=== PATIENT | female | born 1975 | race Caucasian/White ===

== ENCOUNTER 2017-04-11 09:16 | Emergency (ER) | payer MEDICARE, MEDICAID ==
[2017-04-11] MEDS ORDERED: Clindamycin 150 MG CAP ONE ×2 (09:40)
[2017-04-11] MEDS ORDERED: Naproxen 500 MG TAB ONE (09:40)
[2017-04-11] MEDS ORDERED: Acetaminophen/Codeine 30-300mg Tablet ONE (09:44)
[2017-04-11] MEDS ORDERED: Fluconazole 100 MG TAB ONE (09:45)
== END 2017-04-11 09:55 | disposition home or self-care (01) ==
LOC: MADERS 09:16
DX: K11.3 Abscess of salivary gland (principal); K04.7 Periapical abscess without sinus; M06.9 Rheumatoid arthritis, unspecified; D64.9 Anemia, unspecified; E11.9 Type 2 diabetes mellitus without complications; F32.9 Major depressive disorder, single episode, unspecified
CPT/HCPCS: 99282

== ENCOUNTER 2018-08-13 17:20 | Emergency (ER) | payer MEDICARE, MEDICAID ==
[2018-08-13] MEDS ORDERED: Ketorolac Tromethamine 30 MG/ML VIAL ONE (18:05)
[2018-08-13] MEDS ORDERED: Mag-Al Plus 1200 MG/1200 MG/120 MG/30 ML UDCUP ONE (18:05)
[2018-08-13] MEDS ORDERED: Lidocaine Viscous Sol 2% 15 ml UD Cup ONE (18:05)
[2018-08-13 18:26] LABS: #Basophils 0.1 thou/uL (0.0-0.2); #Eosinphils 0.4 thou/uL (0.0-0.7); #Lymphocytes 2.5 thou/uL (1.20-3.40); #Monocytes 0.9 thou/uL (0.11-0.59); #Neutrophils 11.2 thou/uL (1.40-6.50); %Basophils 0.4 % (0.0-1.0); %Eosinophils 2.6 % (0.0-10.0); %Lymphocytes 16.5 % (21.0-51.0); %Monocytes 5.9 % (0.0-10.0); %Neutrophils 74.5 % (42.0-75.0); ALT (SGPT) 28 U/L (8-55); AST (SGOT) 15 U/L (5-34); Albumin 4.3 g/dL (3.5-5.0); Alkaline Phosphatase 156 U/L (40-150); Anion Gap 16 mmol/L (10-20); Anisocytosis SLIGHT = 6-15 cells (100X) (0-5/hpf); BUN (Urea Nitrogen) 13 mg/dL (7.0-18.7); Bilirubin, Total 0.4 mg/dL (0.2-1.2); CK (CPK) 26 U/L (29-168); Calc. Creatinine Clearance 0 mL/min (70-130); Calcium 10.1 mg/dL (7.8-10.44); Carbon Dioxide 25 mmol/L (22-29); Chloride 104 mmol/L (98-107); Estimated GFR-MDRD 81; Globulin 3.4 g/dL (2.4-3.5); Glucose 131 mg/dL (70-105); Hemoglobin 11.3 g/dL (12.0-16.0); Lipase 59 U/L (8-78); MDiff Complete? YES; Mean Corpuscular HGB CONC 31.3 g/dL (32.0-36.0); Mean Corpuscular Hemoglobin 23.2 pg (27.0-31.0); Mean Corpuscular Volume 74.2 fL (78.0-98.0); Microcytosis SLIGHT = 6-15 cells (100X) (0-5/hpf); Platelet Count 380 thou/uL (130-400); Potassium 3.6 mmol/L (3.5-5.1); Protein, Total 7.7 g/dL (6.0-8.3); RBC Distribution Width 16.2 % (11.5-14.5); Red Blood Cell (RBC) Count 4.87 mill/uL (4.20-5.40); Sodium 141 mmol/L (136-145); White Blood Cell (WBC) Count 15.1 thou/uL (4.8-10.8)
[2018-08-13 18:55] LABS: Bilirubin Negative (Negative); Blood, Urine Negative (Negative); Glucose, Urine (Dipstick) Negative (Negative); Leukocyte Negative (Negative); Nitrite Negative (Negative); Protein, Urine (Dipstick) Trace mg/dL (Neg-Trace); Specific Gravity, Urine 1.025 (1.005-1.030); Urobilinogen 0.2 mg/dL (0.2-1.0); pH, Urine 5.5 (5.0-9.0)
[2018-08-13 18:56] LABS: Clarity Hazy (Clear)
--- NOTE | 2018-08-13 19:19 | RAD ---
PORTABLE CHEST: 08/13/18 HISTORY: Chest pain. Film technique is suboptimal for evaluation of the lung bases. Heart size is upper limits of normal. Mediastinal structures appear unremarkable. Lungs appear clear of any definite infiltrates. IMPRESSION: Suboptimal visualization of the lung bases due to body habitus. No definite infiltrate. If indicated, a PA and lateral chest film would be helpful in assessment. POS: [facility]
== END 2018-08-13 19:40 | disposition home or self-care (01) ==
LOC: MADERS 17:20
DX: R07.89 Other chest pain (principal); M06.9 Rheumatoid arthritis, unspecified; E11.9 Type 2 diabetes mellitus without complications; D64.9 Anemia, unspecified; F41.9 Anxiety disorder, unspecified; I10 Essential (primary) hypertension; F32.9 Major depressive disorder, single episode, unspecified; Z79.899 Other long term (current) drug therapy; Z79.891 Long term (current) use of opiate analgesic
CPT/HCPCS: 71045; 80053; 81003; 82550; 83690; 84484; 85025; 93005; 96374; J1885

== ENCOUNTER 2019-06-23 09:02 | Emergency (ER) | payer MEDICARE, MEDICAID ==
[2019-06-23] MEDS ORDERED: Acetaminophen 500 MG TAB ONE (09:31)
== END 2019-06-23 10:10 | disposition home or self-care (01) ==
LOC: MADERS 09:02
DX: B34.9 Viral infection, unspecified (principal); I10 Essential (primary) hypertension; M06.9 Rheumatoid arthritis, unspecified; E11.9 Type 2 diabetes mellitus without complications; F32.9 Major depressive disorder, single episode, unspecified; F41.9 Anxiety disorder, unspecified; Z79.899 Other long term (current) drug therapy; Z79.82 Long term (current) use of aspirin
CPT/HCPCS: 87081; 87430; 87804; 99283

== ENCOUNTER 2020-02-24 13:42 | Emergency (ER) | payer MEDICARE, MEDICAID, OTHER ==
[2020-02-24] MEDS ORDERED: Promethazine HCl 6.25 MG/5 ML Syrup ONE (14:27)
--- NOTE | 2020-02-24 14:56 | RAD ---
PORTABLE CHEST 1 VIEW: DATE: 02/24/2020. TIME: 2:41 PM. HISTORY: Cough. COMPARISON: 08/13/2018. FINDINGS: The heart size is normal. The lungs are expanded without lobar consolidation, pneumothoraces, malvin pulmonary edema, or pleural effusions. IMPRESSION: No acute process. POS: [facility]
[2020-02-24] MEDS ORDERED: Ibuprofen 800 MG TAB ONE (15:58)
[2020-02-25 12:09] LABS: SARS-CoV-2 MS2 Positive; SARS-CoV-2 N Gene Positive; SARS-CoV-2 S Gene Positive; SARS-CoV-2 orf1ab Positive
== END 2020-02-24 16:15 | disposition home or self-care (01) ==
LOC: MADERS 13:42
DX: U07.1 COVID-19 (principal); J20.8 Acute bronchitis due to other specified organisms; M06.9 Rheumatoid arthritis, unspecified; D64.89 Other specified anemias; F41.9 Anxiety disorder, unspecified; F32.9 Major depressive disorder, single episode, unspecified; I10 Essential (primary) hypertension; E11.9 Type 2 diabetes mellitus without complications; Z79.899 Other long term (current) drug therapy
CPT/HCPCS: 71045; 87081; 87430; 87804 ×2; 99283; U0003; 87635

== ENCOUNTER 2020-04-01 15:01 | Outpatient (CLI) | payer MEDICARE, OTHER ==
[2020-04-01 15:26] LABS: #Basophils 0.1 thou/uL (0.0-0.2); #Eosinphils 0.4 thou/uL (0.0-0.7); #Lymphocytes 3.3 thou/uL (1.20-3.40); #Monocytes 0.4 thou/uL (0.11-0.59); #Neutrophils 4.5 thou/uL (1.40-6.50); %Basophils 0.7 % (0.0-1.0); %Eosinophils 4.1 % (0.0-10.0); %Lymphocytes 38.6 % (21.0-51.0); %Monocytes 4.7 % (0.0-10.0); %Neutrophils 51.9 % (42.0-75.0); Hemoglobin 14.4 g/dL (12.0-16.0); Mean Corpuscular HGB CONC 30.8 g/dL (32.0-36.0); Mean Corpuscular Hemoglobin 25.2 pg (27.0-31.0); Mean Corpuscular Volume 81.7 fL (78.0-98.0); Mean Platelet Volume 7.9 fL (7.4-10.4); Platelet Count 332 thou/uL (130-400); RBC Distribution Width 14.4 % (11.5-14.5); Red Blood Cell (RBC) Count 5.71 mill/uL (4.20-5.40); White Blood Cell (WBC) Count 8.6 thou/uL (4.8-10.8)
[2020-04-01 15:41] LABS: ALT (SGPT) 77 U/L (8-55); AST (SGOT) 62 U/L (5-34); Albumin 4.4 g/dL (3.5-5.0); Alkaline Phosphatase 122 U/L (40-110); Anion Gap 15 mmol/L (10-20); BUN (Urea Nitrogen) 16 mg/dL (7.0-18.7); Bilirubin, Total 0.4 mg/dL (0.2-1.2); Calc. Creatinine Clearance 0 mL/min (70-130); Calcium 10.1 mg/dL (7.8-10.44); Carbon Dioxide 26 mmol/L (22-29); Chloride 101 mmol/L (98-107); Estimated GFR-MDRD 88; Globulin 3.2 g/dL (2.4-3.5); Glucose 183 mg/dL (70-105); Potassium 3.9 mmol/L (3.5-5.1); Protein, Total 7.6 g/dL (6.0-8.3); Sodium 138 mmol/L (136-145)
--- NOTE | 2020-04-01 15:46 | RAD ---
Chest 2 views HISTORY: Covert pneumonia. COMPARISON: 02/24/2020. FINDINGS: Cardiac silhouette is upper limits of normal in size. Pulmonary vasculature is slightly eng orged. No lobar consolidation, pleural fluid, or pneumothorax are apparent. Lateral costophrenic angles are excluded from the frontal view. IMPRESSION : Borderline pulmonary vascular prominence. No focal infiltrate is evident.
[2020-04-01 16:33] LABS: Thyroid Stimulating Hormone 3.5964 uIU/mL (0.35-4.94)
[2020-04-01 22:20] LABS: Hemoglobin A1c 9.1 % (4.0-6.0); Iron 82 ug/dL (50-170); Iron Binding Capacity, Total 413 mcg/dL (265-497)
[2020-04-01 22:43] LABS: Ferritin 70.53 ng/mL (10-291)
== END 2020-04-01 15:02 | disposition home or self-care (01) ==
LOC: MADLAB 15:01
PROVIDERS: ATTEND Physician Assistant Medical
DX: D50.9 Iron deficiency anemia, unspecified (principal); E11.9 Type 2 diabetes mellitus without complications; I10 Essential (primary) hypertension; Z86.19 Personal history of other infectious and parasitic diseases
CPT/HCPCS: 36415; 71046; 80053; 82728; 83036; 83540; 83550; 84443; 85025

== ENCOUNTER 2021-05-29 13:55 | Emergency (ER) | payer MEDICARE, MEDICAID ==
[2021-05-29 15:50] LABS: #Eosinphils 0.2 thou/uL (0.0-0.7); #Lymphocytes 2.1 thou/uL (1.20-3.40); #Monocytes 0.5 thou/uL (0.11-0.59); #Neutrophils 6.1 thou/uL (1.40-6.50); %Basophils 0.3 % (0.0-1.0); %Eosinophils 2.5 % (0.0-10.0); %Lymphocytes 23.5 % (21.0-51.0); %Monocytes 5.2 % (0.0-10.0); %Neutrophils 68.5 % (42.0-75.0); Hemoglobin 14.4 g/dL (12.0-16.0); Mean Corpuscular HGB CONC 31.4 g/dL (32.0-36.0); Mean Corpuscular Hemoglobin 26.6 pg (27.0-31.0); Mean Corpuscular Volume 84.8 fL (78.0-98.0); Platelet Count 272 thou/uL (130-400); Red Blood Cell (RBC) Count 5.43 mill/uL (4.20-5.40); White Blood Cell (WBC) Count 8.9 thou/uL (4.8-10.8)
[2021-05-29 16:04] LABS: ALT (SGPT) 40 U/L (8-55); AST (SGOT) 29 U/L (5-34); Albumin 4.1 g/dL (3.5-5.0); Alkaline Phosphatase 140 U/L (40-110); Anion Gap 15 mmol/L (10-20); BUN (Urea Nitrogen) 14 mg/dL (7.0-18.7); Bilirubin, Total 0.5 mg/dL (0.2-1.2); Calc. Creatinine Clearance 0 mL/min (70-130); Calcium 9.7 mg/dL (7.8-10.44); Carbon Dioxide 24 mmol/L (22-29); Chloride 104 mmol/L (98-107); Globulin 3.8 g/dL (2.4-3.5); Glucose 126 mg/dL (70-105); Potassium 3.8 mmol/L (3.5-5.1); Protein, Total 7.9 g/dL (6.0-8.3); Sodium 139 mmol/L (136-145)
[2021-05-29] MEDS ORDERED: Acetaminophen 500 MG TAB ONE (17:35)
== END 2021-05-29 17:40 | disposition home or self-care (01) ==
LOC: MADERS 13:55
DX: F41.1 Generalized anxiety disorder (principal); Z20.822 Contact with and (suspected) exposure to COVID-19; Z79.899 Other long term (current) drug therapy; E66.9 Obesity, unspecified; I10 Essential (primary) hypertension; E11.9 Type 2 diabetes mellitus without complications; D64.9 Anemia, unspecified
CPT/HCPCS: 71045; 80053; 84484; 85025; 85379; 93005

== ENCOUNTER 2023-08-19 14:21 | Emergency (ER) | payer MEDICARE, MEDICAID ==
[2023-08-19 15:47] LABS: #Lymphocytes 1.1 thou/uL (1.20-3.40); #Monocytes 0.4 thou/uL (0.11-0.59); #Neutrophils 8.3 thou/uL (1.40-6.50); %Basophils 0.4 % (0.0-1.0); %Eosinophils 0.5 % (0.0-10.0); %Lymphocytes 11.4 % (21.0-51.0); %Monocytes 4.4 % (0.0-10.0); %Neutrophils 83.3 % (42.0-75.0); Hematocrit 47.6 % (36.0-47.0); Hemoglobin 14.9 g/dL (12.0-16.0); Mean Corpuscular HGB CONC 31.3 g/dL (32.0-36.0); Mean Corpuscular Hemoglobin 25.6 pg (27.0-31.0); Mean Corpuscular Volume 81.7 fl (78.0-98.0); Mean Platelet Volume 8.4 fL (7.4-10.4); Platelet Count 240 10x3/uL (130-400); RBC Distribution Width 13.8 % (11.5-14.5); Red Blood Cell (RBC) Count 5.83 mill/uL (4.20-5.40)
[2023-08-19 15:52] LABS: Prothrombin Time 13.5 sec (12.0-14.7)
[2023-08-19 15:53] LABS: PTT 26.8 sec (22.9-36.1)
[2023-08-19 15:58] LABS: ALT (SGPT) 32 U/L (8-55); AST (SGOT) 19 U/L (5-34); Albumin 4.4 g/dL (3.5-5.0); Alkaline Phosphatase 131 U/L (40-110); Anion Gap 17 mmol/L (10-20); BUN (Urea Nitrogen) 17 mg/dL (7.0-18.7); Bilirubin, Total 0.6 mg/dL (0.2-1.2); Calc. Creatinine Clearance 0 mL/min (70-130); Carbon Dioxide 22 mmol/L (22-29); Chloride 103 mmol/L (98-107); Estimated GFR 86; Globulin 3.8 g/dL (2.4-3.5); Glucose 203 mg/dL (70-105); Protein, Total 8.2 g/dL (6.0-8.3); Sodium 138 mmol/L (136-145)
[2023-08-19 16:00] LABS: Troponin I Less than 0.010 ng/mL (< 0.028)
[2023-08-19] MEDS ORDERED: Promethazine 25 MG TAB ONE (16:18)
[2023-08-19] MEDS ORDERED: Albuterol 2.5 MG (0.5 mL) NEB ONE (16:18)
[2023-08-19] MEDS ORDERED: predniSONE 20 MG TAB ONE (16:18)
[2023-08-19] MEDS ORDERED: Ipratropium Bromide 2.5 ml Neb ONE (16:18)
[2023-08-19] MEDS ORDERED: Doxycycline 100 MG CAP ONE (16:18)
== END 2023-08-19 17:00 | disposition home or self-care (01) ==
LOC: MADERS 14:21
DX: J44.1 Chronic obstructive pulmonary disease with (acute) exacerbation (principal); J01.90 Acute sinusitis, unspecified; I10 Essential (primary) hypertension; E11.9 Type 2 diabetes mellitus without complications; Z79.82 Long term (current) use of aspirin; Z79.899 Other long term (current) drug therapy
CPT/HCPCS: 36415; 36416; 71046; 80053; 83605; 83880; 84484; 85025; 85610; 85730; 87040; 93005; 94760; J7512; J7611; Q0169

== ENCOUNTER 2024-05-22 10:27 | Emergency (ER) | payer MEDICARE, MEDICAID ==
[2024-05-22 11:40] LABS: #Eosinphils 0.2 thou/uL (0.0-0.7); #Lymphocytes 2.2 thou/uL (1.20-3.40); #Monocytes 0.4 thou/uL (0.11-0.59); #Neutrophils 6.4 thou/uL (1.40-6.50); %Basophils 0.3 % (0.0-1.0); %Eosinophils 2.4 % (0.0-10.0); %Lymphocytes 23.7 % (21.0-51.0); %Monocytes 3.7 % (0.0-10.0); %Neutrophils 69.9 % (42.0-75.0); Hematocrit 47.4 % (36.0-47.0); Hemoglobin 14.4 g/dL (12.0-16.0); Hypochromia SLIGHT = 6-15 cells (100X) (0-5/hpf); MDiff Complete? YES; Mean Corpuscular HGB CONC 30.3 g/dL (32.0-36.0); Mean Corpuscular Hemoglobin 24.9 pg (27.0-31.0); Mean Corpuscular Volume 82.2 fl (78.0-98.0); Mean Platelet Volume 7.3 fL (7.4-10.4); Platelet Adequacy Comment Appears Adequate; Platelet Count 251 10x3/uL (130-400); RBC Distribution Width 13.1 % (11.5-14.5); Red Blood Cell (RBC) Count 5.77 mill/uL (4.20-5.40); White Blood Cell (WBC) Count 9.2 10x3/uL (4.8-10.8)
[2024-05-22 11:41] LABS: ALT (SGPT) 23 U/L (8-55); AST (SGOT) 17 U/L (5-34); Albumin 3.8 g/dL (3.5-5.0); Alkaline Phosphatase 147 U/L (40-110); Anion Gap 14 mmol/L (10-20); BUN (Urea Nitrogen) 15 mg/dL (7.0-18.7); Bilirubin, Total 0.4 mg/dL (0.2-1.2); CK (CPK) 32 U/L (29-168); Calc. Creatinine Clearance 0 mL/min (70-130); Calcium 9.9 mg/dL (7.8-10.44); Carbon Dioxide 24 mmol/L (22-29); Chloride 106 mmol/L (98-107); Estimated GFR 87; Globulin 3.6 g/dL (2.4-3.5); Glucose 152 mg/dL (70-105); Lipase 48 U/L (8-78); Magnesium 1.9 mg/dL (1.6-2.6); Potassium 3.6 mmol/L (3.5-5.1); Protein, Total 7.4 g/dL (6.0-8.3); Sodium 140 mmol/L (136-145)
[2024-05-22 11:43] LABS: Troponin I Less than 0.010 ng/mL (< 0.028)
[2024-05-22 12:07] LABS: SARS-CoV-2 E Target Negative; SARS-CoV-2 N2 Target Negative; SARS-CoV-2 NAA Rapid Test Not Detected (NotDetected); SARS-CoV-2 RdRP gene Negative
== END 2024-05-22 12:15 | disposition home or self-care (01) ==
LOC: MADERS 10:27
DX: F41.9 Anxiety disorder, unspecified (principal); R53.83 Other fatigue; I10 Essential (primary) hypertension; E11.9 Type 2 diabetes mellitus without complications; Z87.891 Personal history of nicotine dependence
CPT/HCPCS: 36415; 80053; 82550; 83690; 83735; 84484; 85025; 93005; U0002